=== PATIENT | male | born 2000 | race Caucasian/White ===

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

== ENCOUNTER 2022-08-09 14:10 | Emergency (ER) | payer OTHER | END 2022-08-09 14:38 | disposition left against medical advice (07) | LOC: ED 14:10 → MERGE 14:10 → ED 14:38 | DX: Z53.21 Procedure and treatment not carried out due to patient leaving prior to being seen by health care provider (principal) | CPT/HCPCS: 99281 ==

== ENCOUNTER 2025-02-26 13:40 | Emergency (ER) | payer MEDICAID ==
[2025-02-26 14:08] VITALS: BP 132/88; PULSE 97; TEMP 97; O2SAT 100
--- NOTE | 2025-02-26 14:37 | ERPHSYRPT ---
- History of Present Illness Source: patient Exam Limitations: no limitations Patient Subjective Stated Complaint: pt c/o of left lower mouth pain Triage Nursing Assessment: Pt brought to the ER by his , vital wnl, rates pain as 10/10, pulses normal, skin n/w/d, left lower jaw swollen, pain radiates up to his eye and head, pt reports that all his teeth are broken, does not have a dentist here, denies any other issues Physician History: Patient had a toothache for 3 days. He has had some swelling in his left lower jaw. He has not had any trismus or Ludewig's angina. He has had no fever or chills. He is not having any airway compromise. He does not have a dentist. Nothing makes symptoms better or worse. Allergies/Adverse Reactions: No Known Drug Allergies Allergy (Verified 02/26/25 14:09) Hx Tetanus, Diphtheria Vaccination/Date Given: Yes Hx Influenza Vaccination/Date Given: Yes Hx Pneumococcal Vaccination/Date Given: No Travel Risk - International Travel Have you traveled outside of the country in past 3 weeks: No - Emerging Infectious Disease Are you exhibiting symptoms associated with any current EIDs: No - Review of Systems Constitutional: No Symptoms Eyes: No Symptoms Respiratory: No Symptoms Cardiac: No Symptoms - Past Medical History Pertinent Past Medical History: Yes Neurological History: No Pertinent History ENT History: No Pertinent History Cardiac History: No Pertinent History Respiratory History: No Pertinent History Endocrine Medical History: Diabetes Type I Musculoskeletal History: No Pertinent History GI Medical History: No Pertinent History History: No Pertinent History Psycho-Social History: Bipolar, Depression, Attention Deficit Disorder Male Reproductive Disorders: No Pertinent History - Past Surgical History Past Surgical History: No Neuro Surgical History: No Pertinent History Cardiac: No Pertinent History Respiratory: No Pertinent History Gastrointestinal: No Pertinent History Genitourinary: No Pertinent History Musculoskeletal: No Pertinent History Male Surgical History: No Pertinent History - Social History Smoking Status: Current every day smoker How long have you smoked: 7 years Exposure to second hand smoke: Yes Drug Use: marijuana - Social Determinants of Health Will the patient participate in the screening: Yes Do you worry about a steady place to live?: No Do you have any problems with any of the following?: No known problems In the past 12 months,have you had to go without utilities?: No Transportation Issues: No Has anyone in your support network made you feel unsafe?: No Have you or anyone in your house had to go w/o enough food: No - Nursing Vital Signs Nursing Vital Signs: Initial Vital Signs Temperature 97.0 F 02/26/25 14:03 Pulse Rate 97 H 02/26/25 14:03 Blood Pressure 132/88 02/26/25 14:03 O2 Sat by Pulse Oximetry 100 02/26/25 14:03 Pain Scale Pain Intensity 10 - Physical Exam General Appearance: no apparent distress Eye Exam: PERRL/EOMI Ears, Nose, Throat Exam: pharynx normal, other (Patient has some swelling is outside of his tooth line. It is not inside. There is no elevation of the floor the mouth. His pharynx is patent. Neck is within normal limits.), No pharyngeal erythema, No tonsillar exudate Neck Exam: normal inspection Respiratory Exam: normal breath sounds SpO2: 100 - Progress Progress: unchanged Progress Note: I would give the patient some clindamycin. Also some Delight. He is to follow-up with his dentist. He will return if symptoms worsen.He is not having any signs or symptoms that are worrisome. 02/26/25 14:33 - Departure Departure Disposition: Home Clinical Impression: Dental abscess Condition: Stable Critical Care Time: No Referrals: DOCTOR,NO FAMILY [Primary Care Provider, UNKNOWN] - Follow up/PCP as directed Instructions: Tooth Abscess (DC)
[2025-02-26] MEDS: NORCO 5/325 MG PO ONE (14:55)
[2025-02-26] MEDS ORDERED: NORCO 5/325 MG ONE (14:55)
== END 2025-02-26 15:14 | disposition home or self-care (01) ==
LOC: ED 13:40
DX: K04.7 Periapical abscess without sinus (principal); K08.89 Other specified disorders of teeth and supporting structures; E10.9 Type 1 diabetes mellitus without complications; Z72.0 Tobacco use; Z79.891 Long term (current) use of opiate analgesic; Z79.899 Other long term (current) drug therapy

== ENCOUNTER 2025-07-21 02:53 | Observation (INO) | payer MEDICAID ==
--- NOTE | 2025-07-21 03:29 | ERPHSYRPT ---
- History of Present Illness Time Seen by Provider: 07/21/25 03:28 Historian: patient Exam Limitations: no limitations Patient Subjective Stated Complaint: pt states that he has been vomiting the past few hours Triage Nursing Assessment: pt came into the er via wheelchair; pt transfer to cot per self; pt is axo x4; c/o vomiting; pt states 10/10 pain to abdomen; abd is soft, flat, tender; active bowel sounds in all quads; c/o N/V; blood sugar on arrival was 564; skin patterson, warm, dry; no respiratory distress present; tachycardic Physician History: Patient presents with concern for diabetic ketoacidosis (DKA). He states symptoms began approximately 2 hours prior to arrival. The patient has a known history of DKA. He reports he has been unable to obtain his long-acting insulin and has not been managing his blood glucose. He endorses generalized pain. [id number] blood glucose on arrival was in the 560s. The provider suspects DKA and will initiate a workup. Allergies/Adverse Reactions: No Known Drug Allergies Allergy (Verified 07/21/25 02:58) Home Medications: Insulin Glargine,Hum.rec.anlog [Basaglar Kwikpen U-100] 40 unit SQ DAILY 07/21/25 [History] Hx Tetanus, Diphtheria Vaccination/Date Given: Yes Hx Influenza Vaccination/Date Given: No Hx Pneumococcal Vaccination/Date Given: No Travel Risk - International Travel Have you traveled outside of the country in past 3 weeks: No - Emerging Infectious Disease Are you exhibiting symptoms associated with any current EIDs: Yes Symptoms: Abdominal Pain, Vomitting - Review of Systems All Other Systems: Reviewed and Negative - Past Medical History Pertinent Past Medical History: Yes Neurological History: No Pertinent History ENT History: No Pertinent History Cardiac History: No Pertinent History Respiratory History: No Pertinent History Endocrine Medical History: Diabetes Type I Musculoskeletal History: No Pertinent History GI Medical History: No Pertinent History History: No Pertinent History Psycho-Social History: Bipolar, Depression, Attention Deficit Disorder Male Reproductive Disorders: No Pertinent History - Past Surgical History Past Surgical History: No Neuro Surgical History: No Pertinent History Cardiac: No Pertinent History Respiratory: No Pertinent History Gastrointestinal: No Pertinent History Genitourinary: No Pertinent History Musculoskeletal: No Pertinent History Male Surgical History: No Pertinent History - Social History Smoking Status: Current every day smoker How long have you smoked: 7 years Exposure to second hand smoke: Yes Drug Use: marijuana - Social Determinants of Health Will the patient participate in the screening: Yes Do you worry about a steady place to live?: No Do you have any problems with any of the following?: No known problems In the past 12 months,have you had to go without utilities?: No Transportation Issues: No Has anyone in your support network made you feel unsafe?: No Have you or anyone in your house had to go w/o enough food: No - Nursing Vital Signs Nursing Vital Signs: Initial Vital Signs Pulse Rate 103 H 07/21/25 03:01 Respiratory Rate 23 07/21/25 03:01 Blood Pressure 135/106 07/21/25 03:01 O2 Sat by Pulse Oximetry 90 L 07/21/25 03:01 Pain Scale Pain Intensity 0 - Physical Exam General Appearance: moderate distress, thin Neck Exam: normal inspection, non-tender, supple, full range of motion Respiratory Exam: normal breath sounds, lungs clear, airway intact, No respiratory distress Cardiovascular Exam: normal heart sounds, tachycardia, capillary refill <2 sec, edema Gastrointestinal/Abdomen Exam: soft, tenderness (diffuse), guarding, No rebound Neurologic Exam: alert, oriented x 3, other (restless) Skin Exam: normal color, warm, dry, No rash SpO2 Interpretation: normal SpO2: 100 O2 Delivery: Room Air - Course Nursing assessment & vital signs reviewed: Yes Ordered Tests: Active Orders 24 hr Category Date Time Status IV Insertion STAT Care 07/21/25 03:31 Active IV Insertion STAT Care 07/21/25 03:33 Active ABDOMEN AND PELVIS W/0 CONTRAS [CT] Stat Exams 07/21/25 03:32 Completed CBC W DIFF Stat Lab 07/21/25 03:55 Completed CMP Stat Lab 07/21/25 03:55 Completed ETHYL ALCOHOL Stat Lab 07/21/25 03:55 Completed LIPASE Stat Lab 07/21/25 03:55 Completed Lactic Acid Stat Lab 07/21/25 03:31 Completed Lactic Acid Stat Lab 07/21/25 05:20 Ordered MAGNESIUM Stat Lab 07/21/25 03:55 Completed Manual Differential NC Stat Lab 07/21/25 03:55 Completed POCT GLUCOSE Stat Lab 07/21/25 03:04 Completed POCT GLUCOSE Stat Lab 07/21/25 04:45 Completed UA W/RFX UR CULTURE Stat Lab 07/21/25 03:46 Completed Urine Triage Profile Stat Lab 07/21/25 03:46 Completed VENOUS BLOOD GAS Urgent Lab 07/21/25 03:29 Completed Medication Summary Generic Name Dose Route Start Last Admin Trade Name Matthew PRN Reason Stop Dose Admin Potassium Chloride 20 meq in 100 mls @ 50 mls/hr 07/21/25 04:00 07/21/25 03:58 Potassium Chloride 20 Meq In Water 100ml IV 07/21/25 07:59 50 mls/hr Q2H SARAH Administration INSULIN REGULAR IN 0.9 % NACL 100 unit in 100 mls @ 7.31 mls/hr 07/21/25 03:58 07/21/25 04:00 Myxredlin 100 Unit/100 Ml Bag IV 08/20/25 03:57 0.1 unit/kg/hr .[id number] PRN 7.31 mls/hr HYPERGLYCEMIA Administration Protocol 0.1 UNIT/KG/HR Magnesium Sulfate/Dextrose 100 mls @ 100 mls/hr 07/21/25 05:00 07/21/25 05:01 Magnesium 1 Gm / 100 Ml D5w IV 07/21/25 06:59 100 mls/hr Q1H SARAH Administration Discontinued Medications Generic Name Dose Route Start Last Admin Trade Name Matthew PRN Reason Stop Dose Admin Droperidol 1.25 mg 07/21/25 03:31 07/21/25 03:42 Droperidol 5 Mg/2 Ml Vial IV 07/21/25 03:32 1.25 mg STAT ONE Administration Droperidol Confirm 07/21/25 03:36 Droperidol 5 Mg/2 Ml Vial Administered 07/21/25 03:37 Dose 5 mg .ROUTE .STK-MED ONE Sodium Chloride 1,000 mls @ 999 mls/hr 07/21/25 03:29 07/21/25 04:48 Sodium Chloride 0.9% 1000 Ml IV 07/21/25 04:29 Infused .Q1H1M STA Infusion Sodium Chloride Confirm 07/21/25 03:38 Sodium Chloride 0.9% 1000 Ml Administered 07/21/25 03:39 Dose 1,000 mls @ ud .ROUTE .STK-MED ONE INSULIN REGULAR IN 0.9 % NACL Confirm 07/21/25 03:57 Myxredlin 100 Unit/100 Ml Bag Administered 07/21/25 03:58 Dose 100 unit in 100 mls @ ud IV .STK-MED ONE Sodium Chloride Confirm 07/21/25 04:53 Sodium Chloride 0.9% 1000 Ml Administered 07/21/25 04:54 Dose 1,000 mls @ ud .ROUTE .STK-MED ONE Insulin Human Lispro 12 unit 07/21/25 03:29 07/21/25 03:41 Insulin Lispro 1 Unit SQ 07/21/25 03:30 12 unit STAT ONE Administration Insulin Human Lispro Confirm 07/21/25 03:38 Insulin Lispro 1 Unit Administered 07/21/25 03:39 Dose 12 unit .ROUTE .STK-MED ONE Lab/Rad Data: Laboratory Result Diagrams 07/21/25 03:55 07/21/25 03:55 Laboratory Results 07/21/25 07/21/25 07/21/25 Range/Units 04:45 03:55 03:55 WBC 21.4 H (4.23-9.07) x10^3/uL RBC 6.12 H (4.63-6.08) x10^6/uL Hgb 16.2 (13.7-17.5) g/dL Hct 50.7 (40.1-51.0) % MCV 82.8 (79.0-92.2) fL MCH 26.5 (25.7-32.2) pg MCHC 32.0 L (32.3-36.5) g/dL RDW 13.9 (11.6-14.4) % Plt Count 520 H (163-337) x10^3/uL MPV 10.1 (9.4-12.4) fL pO2/FiO2 Ratio % VBG pH (7.32-7.42) VBG pCO2 at Pat Temp (42-55) mm/Hg VBG pO2 at Pat Temp (25-40) mm/Hg VBG HCO3 (22-28) meq/L VBG O2 Sat (Deondre) (95-100) VBG Base Excess (-2.0-2.0) VBG Hemoglobin VBG Carboxyhemoglobin (0.0-6.9) % T HGB POC Potassium (3.5-5.1) Sodium 131 L (135-145) mmol/L Potassium 4.1 (3.5-5.1) mmol/L Chloride 94 L (98-107) mmol/L Carbon Dioxide 6 L* (22-30) mmol/L Anion Gap 36.1 H (5-15) MEQ/L BUN 16 (9-20) mg/dL Creatinine 1.01 (0.66-1.25) mg/dL Estimated GFR 105.8 ML/MIN Glucose 624 H* (74-106) mg/dL POC Glucometer 420 H (50 to 500) mg/dL Lactic Acid (0.4-2.0) Calcium 9.5 (8.4-10.2) mg/dL Magnesium (1.6-2.3) mg/dL Total Bilirubin 0.90 (0.2-1.3) mg/dL AST 38 (17-59) U/L ALT 41 (0-50) U/L Alkaline Phosphatase 188 H (38-126) U/L Serum Total Protein 9.2 H (6.3-8.2) g/dL Albumin 5.0 (3.5-5.0) g/dL Lipase 26 (23-300) U/L Urine Color (Yellow) Urine Appearance (Clear) Urine pH (4.6-8.0) Ur Specific [place] (1.005-1.030) Urine Protein (Negative) Urine Glucose (UA) (Negative) mg/dL Urine Ketones (Negative) Urine Blood (Negative) Urine Nitrite (Negative) Urine Bilirubin (Negative) Urine Urobilinogen (0.2) mg/dL Ur Leukocyte Esterase (Negative) U Hyaline Cast (Auto) (0-2) /LPF Urine Microscopic RBC (0-5) /HPF Urine Microscopic WBC (0-5) /HPF Ur Epithelial Cells (None Seen) /HPF Urine Bacteria (None Seen) /HPF Urine Culture Reflexed (NO) Urine Opiates Level (NEGATIVE) Ur Methadone (NEGATIVE) Urine Barbiturates (NEGATIVE) Ur Phencyclidine (PCP) (NEGATIVE) Urine Amphetamine (NEGATIVE) U Benzodiazepine Level (NEGATIVE) Urine Cocaine (NEGATIVE) Urine Marijuana (THC) (NEGATIVE) Ethyl Alcohol (0-10) mg/dL 07/21/25 07/21/25 07/21/25 Range/Units 03:55 03:46 03:46 WBC (4.23-9.07) x10^3/uL RBC (4.63-6.08) x10^6/uL Hgb (13.7-17.5) g/dL Hct (40.1-51.0) % MCV (79.0-92.2) fL MCH (25.7-32.2) pg MCHC (32.3-36.5) g/dL RDW (11.6-14.4) % Plt Count (163-337) x10^3/uL MPV (9.4-12.4) fL pO2/FiO2 Ratio % VBG pH (7.32-7.42) VBG pCO2 at Pat Temp (42-55) mm/Hg VBG pO2 at Pat Temp (25-40) mm/Hg VBG HCO3 (22-28) meq/L VBG O2 Sat (Deondre) (95-100) VBG Base Excess (-2.0-2.0) VBG Hemoglobin VBG Carboxyhemoglobin (0.0-6.9) % T HGB POC Potassium (3.5-5.1) Sodium (135-145) mmol/L Potassium (3.5-5.1) mmol/L Chloride (98-107) mmol/L Carbon Dioxide (22-30) mmol/L Anion Gap (5-15) MEQ/L BUN (9-20) mg/dL Creatinine (0.66-1.25) mg/dL Estimated GFR ML/MIN Glucose (74-106) mg/dL POC Glucometer (50 to 500) mg/dL Lactic Acid (0.4-2.0) Calcium (8.4-10.2) mg/dL Magnesium 1.6 (1.6-2.3) mg/dL Total Bilirubin (0.2-1.3) mg/dL AST (17-59) U/L ALT (0-50) U/L Alkaline Phosphatase (38-126) U/L Serum Total Protein (6.3-8.2) g/dL Albumin (3.5-5.0) g/dL Lipase (23-300) U/L Urine Color Yellow (Yellow) Urine Appearance Clear (Clear) Urine pH 5.0 (4.6-8.0) Ur Specific [place] >=1.030 A (1.005-1.030) Urine Protein Negative (Negative) Urine Glucose (UA) >=1000 A (Negative) mg/dL Urine Ketones >=160 A (Negative) Urine Blood Negative (Negative) Urine Nitrite Negative (Negative) Urine Bilirubin Negative (Negative) Urine Urobilinogen 0.2 (0.2) mg/dL Ur Leukocyte Esterase Negative (Negative) U Hyaline Cast (Auto) NONE SEEN (0-2) /LPF Urine Microscopic RBC 0-2 (0-5) /HPF Urine Microscopic WBC 0-2 (0-5) /HPF Ur Epithelial Cells None Seen (None Seen) /HPF Urine Bacteria None Seen (None Seen) /HPF Urine Culture Reflexed NO (NO) Urine Opiates Level NEGATIVE (NEGATIVE) Ur Methadone NEGATIVE (NEGATIVE) Urine Barbiturates NEGATIVE (NEGATIVE) Ur Phencyclidine (PCP) NEGATIVE (NEGATIVE) Urine Amphetamine POSITIVE A (NEGATIVE) U Benzodiazepine Level NEGATIVE (NEGATIVE) Urine Cocaine NEGATIVE (NEGATIVE) Urine Marijuana (THC) POSITIVE A (NEGATIVE) Ethyl Alcohol < 10 (0-10) mg/dL 07/21/25 07/21/25 07/21/25 Range/Units 03:31 03:29 03:04 WBC (4.23-9.07) x10^3/uL RBC (4.63-6.08) x10^6/uL Hgb (13.7-17.5) g/dL Hct (40.1-51.0) % MCV (79.0-92.2) fL MCH (25.7-32.2) pg MCHC (32.3-36.5) g/dL RDW (11.6-14.4) % Plt Count (163-337) x10^3/uL MPV (9.4-12.4) fL pO2/FiO2 Ratio 21.0 % VBG pH 7.11 L* (7.32-7.42) VBG pCO2 at Pat Temp 39 L (42-55) mm/Hg VBG pO2 at Pat Temp 30 (25-40) mm/Hg VBG HCO3 12.4 L* (22-28) meq/L VBG O2 Sat (Deondre) 50.1 L (95-100) VBG Base Excess -16.5 L (-2.0-2.0) VBG Hemoglobin 17.0 VBG Carboxyhemoglobin 3.7 (0.0-6.9) % T HGB POC Potassium 4.9 (3.5-5.1) Sodium (135-145) mmol/L Potassium (3.5-5.1) mmol/L Chloride (98-107) mmol/L Carbon Dioxide (22-30) mmol/L Anion Gap (5-15) MEQ/L BUN (9-20) mg/dL Creatinine (0.66-1.25) mg/dL Estimated GFR ML/MIN Glucose (74-106) mg/dL POC Glucometer 564 H* (50 to 500) mg/dL Lactic Acid 3.6 H (0.4-2.0) Calcium (8.4-10.2) mg/dL Magnesium (1.6-2.3) mg/dL Total Bilirubin (0.2-1.3) mg/dL AST (17-59) U/L ALT (0-50) U/L Alkaline Phosphatase (38-126) U/L Serum Total Protein (6.3-8.2) g/dL Albumin (3.5-5.0) g/dL Lipase (23-300) U/L Urine Color (Yellow) Urine Appearance (Clear) Urine pH (4.6-8.0) Ur Specific [place] (1.005-1.030) Urine Protein (Negative) Urine Glucose (UA) (Negative) mg/dL Urine Ketones (Negative) Urine Blood (Negative) Urine Nitrite (Negative) Urine Bilirubin (Negative) Urine Urobilinogen (0.2) mg/dL Ur Leukocyte Esterase (Negative) U Hyaline Cast (Auto) (0-2) /LPF Urine Microscopic RBC (0-5) /HPF Urine Microscopic WBC (0-5) /HPF Ur Epithelial Cells (None Seen) /HPF Urine Bacteria (None Seen) /HPF Urine Culture Reflexed (NO) Urine Opiates Level (NEGATIVE) Ur Methadone (NEGATIVE) Urine Barbiturates (NEGATIVE) Ur Phencyclidine (PCP) (NEGATIVE) Urine Amphetamine (NEGATIVE) U Benzodiazepine Level (NEGATIVE) Urine Cocaine (NEGATIVE) Urine Marijuana (THC) (NEGATIVE) Ethyl Alcohol (0-10) mg/dL - Progress Progress: improved Progress Note: 07/21/25 03:36 Differential Diagnosis: -Diabetic Ketoacidosis (DKA) (possible due to known history of DKA, non- compliance with insulin, and blood glucose in the 560s) -Hyperglycemic Hyperosmolar State (HHS) (possible due to severe hyperglycemia) -Hyperglycemia (possible due to high blood glucose reading, but likely progressed to DKA) -Sepsis (possible as an underlying trigger for DKA, presenting with generalized pain) -Pancreatitis (possible as it can be a cause or consequence of DKA and can present with generalized pain) Due to the chief complaint, the following diagnoses were also considered but the signs/symptoms, physical exam, and data points are not consistent with any of the following: Acute Myocardial Infarction, Pulmonary Embolism, Aortic Dissection, Stroke, Subarachnoid Hemorrhage, Appendicitis, Cholecystitis, Bowel Obstruction, Meningitis, Cauda Equina Syndrome, and Spinal Epidural Abscess. Rationale for Diagnosis and Decision Making: The patient presents with a history of DKA, known insulin non-compliance due to inability to obtain his medication, and a [id number] glucose in the 560s. The clinical suspicion for DKA is very high. A full workup including labs will be initiated to confirm the diagnosis and guide management with an insulin drip and fluid resuscitation. Given the high likelihood of DKA requiring inpatient management, the patient will be admitted. 07/21/25 03:54 Venous blood gas results showed pH of 7.11 and a bicarb of 12 with a potassium of 4.9. I will initiate a DKA protocol with insulin drip. I will give 40 mill equivalents of potassium as well to adjust for the insulin. 07/21/25 05:21 CT abd/pelvis neg. Discussed admission with Dr. Jennifer Briscoe who accepts at 0520, requests repeat lactic which we will obtain prior to proceeding to the floor. Discussed with Dr.: Vadim Will see patient in: hospital (observation) Counseled pt/family regarding: lab results, diagnosis, need for follow-up, rad results Medical Desision Making - Discussion of managment Care discussed with:: hospitalist Reviewed:: Test results, Need for additional workup Agreed on:: Treatment plan, place in obs Will see patient: in hospital - Social Determinants of Health Pt's dx & treatment plan are significantly limited by SDOH: homelessness Limited access to: transportation - Diagnostic Testing Diagnostic test were ordered, analyzed, and reviewed by me: Yes Radiological Interpretation: Interpreted by me, Reviewed by me, Teleradiologist Report - Risk of complications The pt has a mod risk of morbidity or mortality based on: Need for prescription drug management The pt has a high risk of morbidity or mortality based on: Decision regarding hospitilization or escalation of hosp level of care - Departure Departure Disposition: Observation Clinical Impression: DKA, type 1, not at goal, Vomiting, Abdominal pain Condition: Stable Critical Care Time: No Referrals: DOCTOR,NO FAMILY [Primary Care Provider, UNKNOWN] - Follow up/PCP as directed Instructions: Diabetic ketoacidosis
[2025-07-21] MEDS ORDERED: Inapsine 5 MG/2 ML ONE (03:36)
[2025-07-21] MEDS ORDERED: HUMALOG ONE (03:38)
[2025-07-21] MEDS: HUMALOG SQ ONE (03:41)
[2025-07-21] MEDS: Inapsine 5 MG/2 ML IV ONE (03:42)
[2025-07-21 03:46] LABS: VBG BASE EXCESS -16.5 (-2.0-2.0); VBG CARBOXYHEMOGLOBIN 3.7 % T HGB (0.0-6.9); VBG FIO2 21.0 %; VBG HCO3- 12.4 meq/L (22-28); VBG HEMOGLOBIN 17.0; VBG O2 SATURATION 50.1 (95-100); VBG PCO2 39.0 mm/Hg (42-55); VBG PO2 30.0 mm/Hg (25-40); VBG POTASSIUM 4.9 (3.5-5.1)
[2025-07-21] MEDS ORDERED: MYXREDLIN 100 UNIT/100 ML BAG 100 UNIT/100 ML PLAST..BAG IV ONE (03:57)
[2025-07-21] MEDS: POTASSIUM CHLORIDE 20 mEq IN WATER 100ML 20 MEQ/100 ML BAG IV SCH (03:58)
[2025-07-21] MEDS: MYXREDLIN 100 UNIT/100 ML BAG 100 UNIT/100 ML PLAST..BAG IV PRN (04:00)
[2025-07-21 04:04] LABS: Hematocrit 50.7 % (40.1-51.0); Hemoglobin 16.2 g/dL (13.7-17.5); Mean Corpuscular Hemoglobin 26.5 pg (25.7-32.2); Mean Corpuscular Hgb Concent. 32.0 g/dL (32.3-36.5); Platelet Count 520 x10^3/uL (163-337); Red Blood Count 6.12 x10^6/uL (4.63-6.08); White Blood Count 21.4 x10^3/uL (4.23-9.07)
[2025-07-21 04:15] LABS: Calcium 9.5 mg/dL (8.4-10.2); Creatinine 1 1.01 mg/dL (0.66-1.25); EST GLOMERULAR FILTRATION RATE 105.8 ML/MIN; ETHYL ALCOHOL < 10 mg/dL (0-10); Potassium 4.1 mmol/L (3.5-5.1); SGOT/AST 38.0 U/L (17-59); SGPT/ALT 41.0 U/L (0-50); Total Protein 9.2 g/dL (6.3-8.2)
[2025-07-21 04:17] LABS: Glucose, Urine >=1000 mg/dL (Negative); Protein,Urine Dip Negative (Negative); RBC 0-2 /HPF (0-5); WBC 0-2 /HPF (0-5)
--- NOTE | 2025-07-21 04:18 | XRAY ---
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 TECHNIQUE: Contiguous axial images were obtained from the level of the diaphragm to the pubic symphysis without intravenous or oral contrast. Coronal and sagittal reconstructions were likewise performed and indicated to increase the sensitivity for detecting clinically relevant pathology. CT scan was performed according to ALARA (as low as reasonable achievable). FINDINGS: The visualized lung bases are clear. Evaluation of the abdominal and pelvic visceral organs is limited without intravenous contrast. The unenhanced liver, spleen, pancreas, and adrenal glands are grossly unremarkable. The gallbladder is present. The kidneys are normal in size and attenuation without obvious calcification. There is no hydronephrosis or perinephric stranding. The ureters are normal in caliber. The urinary bladder is normal in contour. No evidence of focal or diffuse bowel wall thickening or evidence of bowel obstruction is seen. The appendix is visualized in the right lower quadrant and appears within normal limits. No adenopathy or fluid collections are seen. The aorta is normal in caliber. No aggressive appearing osseous lesions are identified. IMPRESSION: 1. No significant acute abnormality detected in this evaluation. Electronically Signed by: Tyrone Armenta MD. (07/21/2025 04:16:30 EST)
[2025-07-21 04:25] LABS: Glucose 624.0 mg/dL (74-106)
[2025-07-21 04:26] LABS: Carbon Dioxide 6.0 mmol/L (22-30)
[2025-07-21 04:27] LABS: Amphetamine,Urine POSITIVE (NEGATIVE); Barbiturate,Urine NEGATIVE (NEGATIVE); Benzodiazepine,Urine NEGATIVE (NEGATIVE); Cocaine,Urine NEGATIVE (NEGATIVE); Methadone,Urine NEGATIVE (NEGATIVE); Opiate,Urine NEGATIVE (NEGATIVE); PCP,Urine NEGATIVE (NEGATIVE); THC,Urine POSITIVE (NEGATIVE)
[2025-07-21] MEDS: Magnesium 1 Gm / 100 Ml D5W*** 100 ML IV SCH (05:01)
[2025-07-21 05:48] LABS: BAND 2 % (0.0-2.0); Total Cells Counted 100
[2025-07-21] MEDS ORDERED: D5W/0.45NS W/ 20mEq KCl 1000 ML 1,000 ML IV ONE (06:57)
[2025-07-21] MEDS ORDERED: DEXTROSE 5% -NACL 0.9% 1000 ML + KCl 20 MEQ 1,000 ML IV SCH (07:00)
[2025-07-21] MEDS: D5W/0.45NS W/ 20mEq KCl 1000 ML 1,000 ML IV SCH (07:00)
--- NOTE | 2025-07-21 07:53 | PCM.HP ---
History of Present Illness - Chief Complaint Chief Complaint: dka Date: 07/21/25 History of Present Illness: is a 25 year old male with known type 1 diabetes, bipolar disorder, and ADHD presented to the ED on 07/21/2025 after several hours of persistent vomiting and self-reported concern for DKA, stating he has been non-compliant with insulin and has not had long-acting insulin; he also reports he does not have a glucometer to check sugars. Social history is high-risk: he is homeless and living in his car, which significantly limits medication storage, access, and reliable follow-up. Patient was sleeping on initial evaluation, arousable to verbal stimulation, but minimally cooperative with interview and requested to be left alone to sleep. Upon arrival to EDhe was tachycardic with otherwise stable vitals. Initial labs were diagnostic of severe highanion gap metabolic acidosis: VBG pH 7.11 with HCO2 12.4 (serum CO2 6) and anion gap 36.1, consistent with DKA in the clinical setting of vomiting and insulin omission; urinalysis supported this with glucose >1000 and ketones >160. Electrolytes showed Na 131, Cl 94, and BUN 16 (no overt azotemia reported), with hemoconcentration suggested by VBG hemoglobin 17.0. He had leukocytosis (WBC 21.4) and an initial lactate 3.6 that improved to 1.6 after IV fluids, favoring hypovolemia/stress physiology rather than persistent tissue hypoperfusion, though infection still requires exclusion. Alkaline phosphatase was 188 (isolated valueinterpret in context with other LFTs if available). UDS was positive for amphetamines and marijuana, which may contribute to poor intake, dehydration, and nonadherence. CT abdomen/pelvis showed no acute findings, lowering suspicion for an intra-abdominal surgical process as the vomiting trigger. In the ED he received 12 units Humalog, was started on an insulin infusion, and treated with IV fluids (1 L NS), magnesium, and potassium repletion (40 mEq). He is admitted for continued protocolized DKA management with close electrolyte monitoring and to address major barriers to safe discharge (housing insecurity, lack of insulin supplies, and no glucose monitoring). - Review of Systems Constitutional: No Symptoms Eyes: No Symptoms Ears, Nose, & Throat: No Symptoms Respiratory: No Symptoms Cardiac: No Symptoms Abdominal/Gastrointestinal: Abdominal Pain, Nausea, Vomiting Genitourinary Symptoms: No Symptoms Musculoskeletal: No Symptoms Skin: No Symptoms Neurological: No Symptoms Psychological: No Symptoms Endocrine: No Symptoms Hematologic/Lymphatic: No Symptoms Immunological/Allergic: No Symptoms Medications & Allergies Home Medications: Home Medication List Insulin Glargine,Hum.rec.anlog [Basaglar Kwikpen U-100] 40 unit SQ DAILY 07/21/25 [History Confirmed 07/21/25] Insulin Lispro [Insulin Lispro Kwikpen U-100] See Rx Instructions .ROUTE .C OMPLEX 07/21/25 [History Confirmed 07/21/25] Allergies/Adverse Reactions: Allergies Allergy/AdvReac Type Severity Reaction Status Date / Time No Known Drug Allergies Allergy Verified 07/21/25 02:58 - Past Medical History Past Medical History: Yes Neurological History: Peripheral Neuropathy, Seizures ENT History: No Pertinent History Cardiac History: No Pertinent History Respiratory History: No Pertinent History Endocrine Medical History: Diabetes Type I Musculoskelatal History: Other GI Medical History: No Pertinent History History: No Pertinent History Pyscho-Social History: Attention Deficit Disorder, Bipolar, Depression, Other Male Reproductive Disorders: No Pertinent History Comment: explosive disorder, general degenerative disease, alpha-thalassemia - Past Surgical History Past Surgical History: No Neuro Surgical History: No Pertinent History Cardiac History: No Pertinent History Respiratory Surgery: No Pertinent History GI Surgical History: No Pertinent History Genitourinary Surgical Hx: No Pertinent History Musculskeletal Surgical Hx: No Pertinent History Male Surgical History: No Pertinent History - Social History Smoking Status: Current every day smoker How long have you smoked: 7 years Exposure to second hand smoke: Yes Alcohol: None Drug Use: marijuana, methamphetamines - Social Determinants of Health Will the patient participate in the screening: Yes Do you worry about a steady place to live?: No Do you have any problems with any of the following?: No known problems In the past 12 months,have you had to go without utilities?: No Have you or anyone in your house had to go without enough: No Transportation Issues: No Has anyone in your support network made you feel unsafe?: No - Physical Exam Vital Signs: Vital Signs - 24 hr Temp Pulse Resp BP BP Pulse Ox 07/21/25 05:50 101 H 16 105/67 99 07/21/25 05:49 97 H 16 07/21/25 05:23 100 07/21/25 05:00 106 H 17 117/82 100 07/21/25 04:30 107 H 17 91/69 100 07/21/25 04:00 105 H 19 134/83 100 07/21/25 03:30 107 H 25 H 134/97 100 07/21/25 03:02 96.7 F 112 H 20 135/106 100 07/21/25 03:01 103 H 23 135/106 90 L General Appearance: no apparent distress Neurologic Exam: alert, oriented x 3, uncooperative Eye Exam: PERRL/EOMI Ears, Nose, Throat Exam: normal ENT inspection Neck Exam: normal inspection Respiratory Exam: normal breath sounds, lungs clear Cardiovascular Exam: regular rate/rhythm, normal heart sounds Gastrointestinal/Abdomen Exam: soft, normal bowel sounds Rectal Exam: deferred Back Exam: normal inspection Extremity Exam: normal inspection Skin Exam: normal color Results - Labs Lab/Micro Results: Lab Results-Last 24 Hours 07/21/25 07/21/25 07/21/25 Range/Units 03:04 03:29 03:31 WBC (4.23-9.07) x10^3/uL RBC (4.63-6.08) x10^6/uL Hgb (13.7-17.5) g/dL Hct (40.1-51.0) % MCV (79.0-92.2) fL MCH (25.7-32.2) pg MCHC (32.3-36.5) g/dL RDW (11.6-14.4) % Plt Count (163-337) x10^3/uL MPV (9.4-12.4) fL Segmented Neutrophils (34.0-67.9) % Band Neutrophils (0.0-2.0) % Lymphocytes (Manual) (21.8-53.1) % Monocytes (Manual) (5.3-12.2) % Basophils (Manual) (0.2-1.2) % Platelet Estimate (NORMAL) RBC Morphology pO2/FiO2 Ratio 21.0 % VBG pH 7.11 L* (7.32-7.42) VBG pCO2 at Pat Temp 39 L (42-55) mm/Hg VBG pO2 at Pat Temp 30 (25-40) mm/Hg VBG HCO3 12.4 L* (22-28) meq/L VBG O2 Sat (Deondre) 50.1 L (95-100) VBG Base Excess -16.5 L (-2.0-2.0) VBG Hemoglobin 17.0 VBG Carboxyhemoglobin 3.7 (0.0-6.9) % T HGB POC Potassium 4.9 (3.5-5.1) Sodium (135-145) mmol/L Potassium (3.5-5.1) mmol/L Chloride (98-107) mmol/L Carbon Dioxide (22-30) mmol/L Anion Gap (5-15) MEQ/L BUN (9-20) mg/dL Creatinine (0.66-1.25) mg/dL Estimated GFR ML/MIN Glucose (74-106) mg/dL POC Glucometer 564 H* (50 to 500) mg/dL Lactic Acid 3.6 H (0.4-2.0) Calcium (8.4-10.2) mg/dL Magnesium (1.6-2.3) mg/dL Total Bilirubin (0.2-1.3) mg/dL AST (17-59) U/L ALT (0-50) U/L Alkaline Phosphatase (38-126) U/L Serum Total Protein (6.3-8.2) g/dL Albumin (3.5-5.0) g/dL Lipase (23-300) U/L Urine Color (Yellow) Urine Appearance (Clear) Urine pH (4.6-8.0) Ur Specific [place] (1.005-1.030) Urine Protein (Negative) Urine Glucose (UA) (Negative) mg/dL Urine Ketones (Negative) Urine Blood (Negative) Urine Nitrite (Negative) Urine Bilirubin (Negative) Urine Urobilinogen (0.2) mg/dL Ur Leukocyte Esterase (Negative) U Hyaline Cast (Auto) (0-2) /LPF Urine Microscopic RBC (0-5) /HPF Urine Microscopic WBC (0-5) /HPF Ur Epithelial Cells (None Seen) /HPF Urine Bacteria (None Seen) /HPF Urine Culture Reflexed (NO) Urine Opiates Level (NEGATIVE) Ur Methadone (NEGATIVE) Urine Barbiturates (NEGATIVE) Ur Phencyclidine (PCP) (NEGATIVE) Urine Amphetamine (NEGATIVE) U Benzodiazepine Level (NEGATIVE) Urine Cocaine (NEGATIVE) Urine Marijuana (THC) (NEGATIVE) Ethyl Alcohol (0-10) mg/dL 07/21/25 07/21/25 07/21/25 Range/Units 03:46 03:46 03:55 WBC (4.23-9.07) x10^3/uL RBC (4.63-6.08) x10^6/uL Hgb (13.7-17.5) g/dL Hct (40.1-51.0) % MCV (79.0-92.2) fL MCH (25.7-32.2) pg MCHC (32.3-36.5) g/dL RDW (11.6-14.4) % Plt Count (163-337) x10^3/uL MPV (9.4-12.4) fL Segmented Neutrophils (34.0-67.9) % Band Neutrophils (0.0-2.0) % Lymphocytes (Manual) (21.8-53.1) % Monocytes (Manual) (5.3-12.2) % Basophils (Manual) (0.2-1.2) % Platelet Estimate (NORMAL) RBC Morphology pO2/FiO2 Ratio % VBG pH (7.32-7.42) VBG pCO2 at Pat Temp (42-55) mm/Hg VBG pO2 at Pat Temp (25-40) mm/Hg VBG HCO3 (22-28) meq/L VBG O2 Sat (Deondre) (95-100) VBG Base Excess (-2.0-2.0) VBG Hemoglobin VBG Carboxyhemoglobin (0.0-6.9) % T HGB POC Potassium (3.5-5.1) Sodium (135-145) mmol/L Potassium (3.5-5.1) mmol/L Chloride (98-107) mmol/L Carbon Dioxide (22-30) mmol/L Anion Gap (5-15) MEQ/L BUN (9-20) mg/dL Creatinine (0.66-1.25) mg/dL Estimated GFR ML/MIN Glucose (74-106) mg/dL POC Glucometer (50 to 500) mg/dL Lactic Acid (0.4-2.0) Calcium (8.4-10.2) mg/dL Magnesium 1.6 (1.6-2.3) mg/dL Total Bilirubin (0.2-1.3) mg/dL AST (17-59) U/L ALT (0-50) U/L Alkaline Phosphatase (38-126) U/L Serum Total Protein (6.3-8.2) g/dL Albumin (3.5-5.0) g/dL Lipase (23-300) U/L Urine Color Yellow (Yellow) Urine Appearance Clear (Clear) Urine pH 5.0 (4.6-8.0) Ur Specific [place] >=1.030 A (1.005-1.030) Urine Protein Negative (Negative) Urine Glucose (UA) >=1000 A (Negative) mg/dL Urine Ketones >=160 A (Negative) Urine Blood Negative (Negative) Urine Nitrite Negative (Negative) Urine Bilirubin Negative (Negative) Urine Urobilinogen 0.2 (0.2) mg/dL Ur Leukocyte Esterase Negative (Negative) U Hyaline Cast (Auto) NONE SEEN (0-2) /LPF Urine Microscopic RBC 0-2 (0-5) /HPF Urine Microscopic WBC 0-2 (0-5) /HPF Ur Epithelial Cells None Seen (None Seen) /HPF Urine Bacteria None Seen (None Seen) /HPF Urine Culture Reflexed NO (NO) Urine Opiates Level NEGATIVE (NEGATIVE) Ur Methadone NEGATIVE (NEGATIVE) Urine Barbiturates NEGATIVE (NEGATIVE) Ur Phencyclidine (PCP) NEGATIVE (NEGATIVE) Urine Amphetamine POSITIVE A (NEGATIVE) U Benzodiazepine Level NEGATIVE (NEGATIVE) Urine Cocaine NEGATIVE (NEGATIVE) Urine Marijuana (THC) POSITIVE A (NEGATIVE) Ethyl Alcohol < 10 (0-10) mg/dL 07/21/25 07/21/25 07/21/25 Range/Units 03:55 03:55 04:45 WBC 21.4 H (4.23-9.07) x10^3/uL RBC 6.12 H (4.63-6.08) x10^6/uL Hgb 16.2 (13.7-17.5) g/dL Hct 50.7 (40.1-51.0) % MCV 82.8 (79.0-92.2) fL MCH 26.5 (25.7-32.2) pg MCHC 32.0 L (32.3-36.5) g/dL RDW 13.9 (11.6-14.4) % Plt Count 520 H (163-337) x10^3/uL MPV 10.1 (9.4-12.4) fL Segmented Neutrophils 78 H (34.0-67.9) % Band Neutrophils 2 (0.0-2.0) % Lymphocytes (Manual) 14 L (21.8-53.1) % Monocytes (Manual) 5 L (5.3-12.2) % Basophils (Manual) 1 (0.2-1.2) % Platelet Estimate INCREASED (NORMAL) RBC Morphology NORMAL pO2/FiO2 Ratio % VBG pH (7.32-7.42) VBG pCO2 at Pat Temp (42-55) mm/Hg VBG pO2 at Pat Temp (25-40) mm/Hg VBG HCO3 (22-28) meq/L VBG O2 Sat (Deondre) (95-100) VBG Base Excess (-2.0-2.0) VBG Hemoglobin VBG Carboxyhemoglobin (0.0-6.9) % T HGB POC Potassium (3.5-5.1) Sodium 131 L (135-145) mmol/L Potassium 4.1 (3.5-5.1) mmol/L Chloride 94 L (98-107) mmol/L Carbon Dioxide 6 L* (22-30) mmol/L Anion Gap 36.1 H (5-15) MEQ/L BUN 16 (9-20) mg/dL Creatinine 1.01 (0.66-1.25) mg/dL Estimated GFR 105.8 ML/MIN Glucose 624 H* (74-106) mg/dL POC Glucometer 420 H (50 to 500) mg/dL Lactic Acid (0.4-2.0) Calcium 9.5 (8.4-10.2) mg/dL Magnesium (1.6-2.3) mg/dL Total Bilirubin 0.90 (0.2-1.3) mg/dL AST 38 (17-59) U/L ALT 41 (0-50) U/L Alkaline Phosphatase 188 H (38-126) U/L Serum Total Protein 9.2 H (6.3-8.2) g/dL Albumin 5.0 (3.5-5.0) g/dL Lipase 26 (23-300) U/L Urine Color (Yellow) Urine Appearance (Clear) Urine pH (4.6-8.0) Ur Specific [place] (1.005-1.030) Urine Protein (Negative) Urine Glucose (UA) (Negative) mg/dL Urine Ketones (Negative) Urine Blood (Negative) Urine Nitrite (Negative) Urine Bilirubin (Negative) Urine Urobilinogen (0.2) mg/dL Ur Leukocyte Esterase (Negative) U Hyaline Cast (Auto) (0-2) /LPF Urine Microscopic RBC (0-5) /HPF Urine Microscopic WBC (0-5) /HPF Ur Epithelial Cells (None Seen) /HPF Urine Bacteria (None Seen) /HPF Urine Culture Reflexed (NO) Urine Opiates Level (NEGATIVE) Ur Methadone (NEGATIVE) Urine Barbiturates (NEGATIVE) Ur Phencyclidine (PCP) (NEGATIVE) Urine Amphetamine (NEGATIVE) U Benzodiazepine Level (NEGATIVE) Urine Cocaine (NEGATIVE) Urine Marijuana (THC) (NEGATIVE) Ethyl Alcohol (0-10) mg/dL 07/21/25 07/21/25 07/21/25 Range/Units 05:33 05:57 06:52 WBC (4.23-9.07) x10^3/uL RBC (4.63-6.08) x10^6/uL Hgb (13.7-17.5) g/dL Hct (40.1-51.0) % MCV (79.0-92.2) fL MCH (25.7-32.2) pg MCHC (32.3-36.5) g/dL RDW (11.6-14.4) % Plt Count (163-337) x10^3/uL MPV (9.4-12.4) fL Segmented Neutrophils (34.0-67.9) % Band Neutrophils (0.0-2.0) % Lymphocytes (Manual) (21.8-53.1) % Monocytes (Manual) (5.3-12.2) % Basophils (Manual) (0.2-1.2) % Platelet Estimate (NORMAL) RBC Morphology pO2/FiO2 Ratio % VBG pH (7.32-7.42) VBG pCO2 at Pat Temp (42-55) mm/Hg VBG pO2 at Pat Temp (25-40) mm/Hg VBG HCO3 (22-28) meq/L VBG O2 Sat (Deondre) (95-100) VBG Base Excess (-2.0-2.0) VBG Hemoglobin VBG Carboxyhemoglobin (0.0-6.9) % T HGB POC Potassium (3.5-5.1) Sodium (135-145) mmol/L Potassium (3.5-5.1) mmol/L Chloride (98-107) mmol/L Carbon Dioxide (22-30) mmol/L Anion Gap (5-15) MEQ/L BUN (9-20) mg/dL Creatinine (0.66-1.25) mg/dL Estimated GFR ML/MIN Glucose (74-106) mg/dL POC Glucometer 245 H 185 H (50 to 500) mg/dL Lactic Acid 1.6 (0.4-2.0) Calcium (8.4-10.2) mg/dL Magnesium (1.6-2.3) mg/dL Total Bilirubin (0.2-1.3) mg/dL AST (17-59) U/L ALT (0-50) U/L Alkaline Phosphatase (38-126) U/L Serum Total Protein (6.3-8.2) g/dL Albumin (3.5-5.0) g/dL Lipase (23-300) U/L Urine Color (Yellow) Urine Appearance (Clear) Urine pH (4.6-8.0) Ur Specific [place] (1.005-1.030) Urine Protein (Negative) Urine Glucose (UA) (Negative) mg/dL Urine Ketones (Negative) Urine Blood (Negative) Urine Nitrite (Negative) Urine Bilirubin (Negative) Urine Urobilinogen (0.2) mg/dL Ur Leukocyte Esterase (Negative) U Hyaline Cast (Auto) (0-2) /LPF Urine Microscopic RBC (0-5) /HPF Urine Microscopic WBC (0-5) /HPF Ur Epithelial Cells (None Seen) /HPF Urine Bacteria (None Seen) /HPF Urine Culture Reflexed (NO) Urine Opiates Level (NEGATIVE) Ur Methadone (NEGATIVE) Urine Barbiturates (NEGATIVE) Ur Phencyclidine (PCP) (NEGATIVE) Urine Amphetamine (NEGATIVE) U Benzodiazepine Level (NEGATIVE) Urine Cocaine (NEGATIVE) Urine Marijuana (THC) (NEGATIVE) Ethyl Alcohol (0-10) mg/dL - Radiology Impressions Radiology Exams & Impressions: Radiology Procedures Category Date Time Status ABDOMEN AND PELVIS W/0 CONTRAS [CT] Stat Exams 07/21/25 03:32 Completed Assessment/Plan (1) DKA, type 1, not at goal Current Visit: Yes Status: Acute Assessment & Plan: -Admit to ICU telemetry; NPO initially if actively vomiting. -Fluids: isotonic crystalloid now (NS or balanced). Reassess vitals/UOP frequently. When glucose 200, switch to D5-containing fluids -Continue insulin drip per protocol -BMP q4h -DKA protocal -Bicarb: generally no unless pH <6.9 (or protocol exception). -Resolution/transition: DKA resolved when AG closed (and bicarb/pH improving + tolerating PO). Give basal insulin 24 hrs before stopping drip, then basalboluscorrection regimen. -A1c -CM/ACO to help with insulin/supplies on discharge- patient currently living in his car Code(s): E10.10 - TYPE 1 DIABETES MELLITUS WITH KETOACIDOSIS WITHOUT COMA (2) Leukocytosis Current Visit: Yes Status: Acute Assessment & Plan: -Likely stress physiology (lactate improved 3.6-1.6 after fluids), -CT abdomen with no acute findings -Amphetamines on UDS Code(s): D72.829 - ELEVATED WHITE BLOOD CELL COUNT, UNSPECIFIED (3) Lactic acidosis Current Visit: Yes Status: Acute Code(s): E87.20 - ACIDOSIS, UNSPECIFIED (4) Vomiting Current Visit: Yes Status: Acute Assessment & Plan: -Antiemetics PRN; continue IVFs per above; advance diet when nausea improving and gap closing. Code(s): R11.10 - VOMITING, UNSPECIFIED (5) Homeless Current Visit: Yes Status: Acute Assessment & Plan: -Case management/social work: homelessness + no glucometer/long-acting insulin. -[id number]: basal + rapid insulin, needles/pens, glucometer/strips/lancets, ketone testing, glucagon; clear sick-day rules and f ollow-up arranged. Code(s): Z59.00 - HOMELESSNESS UNSPECIFIED (6) Bipolar 1 disorder Current Visit: Yes Status: Acute Assessment & Plan: -Not on home meds currently Code(s): F31.9 - BIPOLAR DISORDER, UNSPECIFIED (7) Substance abuse Current Visit: Yes Status: Acute Assessment & Plan: -UDS positive for amphetamines and marijuana. -Advised cessation; will provide resources -addiction/behavioral health VTE: Lovenox PPI: protonix Dispo: 1-3 days Code status: Full code I provided 45 minutes of critical care time, personally spent at the bedside and on the unit, excluding separately billable procedures. This time was required for the management of life-threatening diabetic ketoacidosis with severe metabolic acidosis, including high-complexity medical decision-making, initiation and titration of continuous IV insulin, aggressive IV fluid resuscitation, electrolyte management, frequent reassessment of hemodynamics and acidbase status, review and interpretation of labs and imaging, coordination with nursing, and prevention of imminent deterioration. Code(s): F19.10 - OTHER PSYCHOACTIVE SUBSTANCE ABUSE, UNCOMPLICATED
[2025-07-21 08:31] LABS: Calcium 8.5 mg/dL (8.4-10.2); Creatinine 1 0.79 mg/dL (0.66-1.25); EST GLOMERULAR FILTRATION RATE 126.4 ML/MIN; Glucose 173.0 mg/dL (74-106); Potassium 4.5 mmol/L (3.5-5.1)
[2025-07-21 08:42] LABS: Carbon Dioxide 11.0 mmol/L (22-30)
[2025-07-21] MEDS ORDERED: Zofran 4 MG/2 ML VIAL IV PRN (11:14)
[2025-07-21] MEDS ORDERED: TYLENOL 325 MG PO PRN (11:14)
[2025-07-21 13:11] LABS: Calcium 8.5 mg/dL (8.4-10.2); Creatinine 1 0.6 mg/dL (0.66-1.25); EST GLOMERULAR FILTRATION RATE 137.4 ML/MIN; Glucose 80.0 mg/dL (74-106); Potassium 3.7 mmol/L (3.5-5.1)
[2025-07-21 13:19] LABS: Carbon Dioxide 16.0 mmol/L (22-30)
[2025-07-21] MEDS: D50W 50 ml Abboject IV PRN (13:25)
[2025-07-21] MEDS ORDERED: HUMALOG SQ PRN (13:30)
[2025-07-21 16:14] LABS: Calcium 8.6 mg/dL (8.4-10.2); Carbon Dioxide 17.0 mmol/L (22-30); Creatinine 1 0.63 mg/dL (0.66-1.25); EST GLOMERULAR FILTRATION RATE 135.4 ML/MIN; Glucose 81.0 mg/dL (74-106); Potassium 3.7 mmol/L (3.5-5.1)
[2025-07-21] MEDS: TYLENOL EXTRA STRENGTH 500 MG PO PRN (18:10)
[2025-07-21 20:28] LABS: Calcium 8.4 mg/dL (8.4-10.2); Carbon Dioxide 18.0 mmol/L (22-30); Creatinine 1 0.62 mg/dL (0.66-1.25); EST GLOMERULAR FILTRATION RATE 136.0 ML/MIN; Glucose 93.0 mg/dL (74-106); Potassium 3.5 mmol/L (3.5-5.1)
[2025-07-22 00:29] VITALS: TEMP 97.4
[2025-07-22 00:33] LABS: Calcium 8.2 mg/dL (8.4-10.2); Carbon Dioxide 18.0 mmol/L (22-30); Creatinine 1 0.56 mg/dL (0.66-1.25); EST GLOMERULAR FILTRATION RATE 140.3 ML/MIN; Glucose 140.0 mg/dL (74-106); Potassium 3.1 mmol/L (3.5-5.1)
[2025-07-22 01:15] LABS: VBG BASE EXCESS -2.1 (-2.0-2.0); VBG CARBOXYHEMOGLOBIN 1.4 % T HGB (0.0-6.9); VBG FIO2 21.0 %; VBG HCO3- 20.9 meq/L (22-28); VBG HEMOGLOBIN 13.4; VBG O2 SATURATION 98.6 (95-100); VBG PCO2 30.0 mm/Hg (42-55); VBG PO2 122.0 mm/Hg (25-40)
[2025-07-22 01:16] LABS: VBG POTASSIUM 3.0 (3.5-5.1)
[2025-07-22] MEDS ORDERED: Lantus Insulin ONE (01:33)
[2025-07-22] MEDS: Lantus Insulin SQ SCH ×2 (01:35→09:52)
[2025-07-22] MEDS: POTASSIUM CHLORIDE 20 mEq IN WATER 100ML 20 MEQ/100 ML BAG IV SCH (01:35)
[2025-07-22 04:41] VITALS: O2SAT 99
[2025-07-22 05:36] LABS: BASOPHIL % 0.6 % (0.2-1.2); Basophil (Absolute #) 0.05 x10^3/uL (0.01-0.08); Eosinophil (Absolute #) 0.26 x10^3/uL (0.04-0.54); Hematocrit 39.0 % (40.1-51.0); Hemoglobin 12.8 g/dL (13.7-17.5); IMMATURE GRAN # 0.07 x10^3u/L (0.001-0.031); IMMATURE GRAN % 0.8 % (0.001-0.429); Lymphocyte (Absolute #) 2.64 x10^3/uL (1.32-3.57); Mean Corpuscular Hemoglobin 26.1 pg (25.7-32.2); Mean Corpuscular Hgb Concent. 32.8 g/dL (32.3-36.5); Monocyte (Absolute #) 0.65 x10^3/uL (0.30-0.82); NUCLEATED RBC # 0.00 x10^3u/L (0.00-0.012); NUCLEATED RBC % 0.0 % (0.00-0.2); Platelet Count 437 x10^3/uL (163-337); Red Blood Count 4.91 x10^6/uL (4.63-6.08); White Blood Count 8.5 x10^3/uL (4.23-9.07)
[2025-07-22 06:08] LABS: Calcium 8.5 mg/dL (8.4-10.2); Carbon Dioxide 18.0 mmol/L (22-30); Creatinine 1 0.54 mg/dL (0.66-1.25); EST GLOMERULAR FILTRATION RATE 141.8 ML/MIN; Glucose 95.0 mg/dL (74-106); Potassium 3.5 mmol/L (3.5-5.1); SGOT/AST 27.0 U/L (17-59); SGPT/ALT 26.0 U/L (0-50); Total Protein 6.7 g/dL (6.3-8.2)
[2025-07-22] MEDS: HUMALOG SQ SCH ×2 (08:26→12:36)
[2025-07-22] MEDS: ENOXAPARIN SODIUM SQ SCH (09:52)
[2025-07-22] MEDS: Tums EX 750 MG PO PRN (11:43)
--- NOTE | 2025-07-22 13:00 | PCM.DS ---
Discharge Summary Date of Admission: 07/21/25 06:07 Date of Discharge: 07/22/25 Admitting Physician: ALTHEA WARREN MD Consults: Consults on Case 07/21/25 08:50 Case Management SDAR DC Needs Assessment ROUTINE Primary Care Provider: NO FAMILY DOCTOR Allergies Allergies No Known Drug Allergies Allergy (Verified 07/21/25 02:58) Hospital Summary - Hospital Course Hospital Course: is a 25-year-old male with a history of type 1 diabetes, bipolar disorder, and ADHD who presented on 07/21/25 with persistent vomiting and concern for diabetic ketoacidosis (DKA) in the setting of insulin noncompliance and lack of long-acting insulin. He is homeless and living in his car, which has limited his ability to store medications and monitor glucose. On arrival, he was tachycardic with otherwise stable vitals, and labs confirmed severe highanion gap metabolic acidosis consistent with DKA. Urinalysis showed marked glucosuria and ketonuria, and CT abdomen/pelvis revealed no acute findings. He was treated with IV fluids, insulin infusion, and electrolyte repletion, with resolution of DKA and closure of the anion gap. During hospitalization, he reported epigastric pain relieved with a GI cocktail. His urine drug screen was positive for methamphetamines and THC, though he declined outpatient referral for substance use. Electrolytes and WBC count improved, and he was restarted on home insulin with prescriptions arranged through [facility] under his temporary insurance plan. Case management coordinated follow-up, and he has an appointment scheduled with his primary care provider tomorrow. At the time of discharge on 07/22/25, he was clinically stable, tolerating fluids, with improved labs, and deemed appropriate for discharge with outpatient follow-up and continuation of insulin therapy. - Vitals & Intake/Output Vital Signs: Vital Signs Temperature 97.4 F 07/22/25 04:00 Pulse Rate 96 H 07/22/25 10:47 Respiratory Rate 14 07/22/25 07:00 Blood Pressure 107/66 07/22/25 10:47 O2 Sat by Pulse Oximetry 99 07/22/25 04:00 Intake & Output: Intake & Output 07/20/25 07/21/25 07/22/25 07/23/25 11:59 11:59 11:59 11:59 Intake Total 6873 Output Total 1150 1100 Balance -1150 5773 Weight 70.6 kg - Lab Result Diagrams: 07/22/25 04:22 07/22/25 13:57 Lab Results-Last 24 Hrs: Lab Results-Last 24 Hours 07/21/25 07/21/25 07/21/25 Range/Units 12:40 12:40 13:21 WBC (4.23-9.07) x10^3/uL RBC (4.63-6.08) x10^6/uL Hgb (13.7-17.5) g/dL Hct (40.1-51.0) % MCV (79.0-92.2) fL MCH (25.7-32.2) pg MCHC (32.3-36.5) g/dL RDW (11.6-14.4) % Plt Count (163-337) x10^3/uL MPV (9.4-12.4) fL Gran % (34.0-67.9) % Immature Gran % (Auto) (0.001-0.429) % Nucleat RBC Rel Count (0.00-0.2) % Eos # (Auto) (0.04-0.54) x10^3/uL Immature Gran # (Auto) (0.001-0.031) x10^3u/L Absolute Lymphs (auto) (1.32-3.57) x10^3/uL Absolute Monos (auto) (0.30-0.82) x10^3/uL Absolute Nucleated RBC (0.00-0.012) x10^3u/L Lymphocytes % (21.8-53.1) % Monocytes % (5.3-12.2) % Eosinophils % (0.8-7.0) % Basophils % (0.2-1.2) % Absolute Granulocytes (1.78-5.38) x10^3/uL Basophils # (0.01-0.08) x10^3/uL pO2/FiO2 Ratio % VBG pH (7.32-7.42) VBG pCO2 at Pat Temp (42-55) mm/Hg VBG pO2 at Pat Temp (25-40) mm/Hg VBG HCO3 (22-28) meq/L VBG O2 Sat (Deondre) (95-100) VBG Base Excess (-2.0-2.0) VBG Hemoglobin VBG Carboxyhemoglobin (0.0-6.9) % T HGB POC Potassium (3.5-5.1) Sodium 135 (135-145) mmol/L Potassium 3.7 (3.5-5.1) mmol/L Chloride 106 (98-107) mmol/L Carbon Dioxide 16 L* (22-30) mmol/L Anion Gap 16.5 H (5-15) MEQ/L BUN 12 (9-20) mg/dL Creatinine 0.60 L (0.66-1.25) mg/dL Estimated GFR 137.4 ML/MIN Glucose 80 (74-106) mg/dL POC Glucometer 64 L (74 to 106) mg/dL Calcium 8.5 (8.4-10.2) mg/dL Phosphorus 2.6 (2.5-4.5) mg/dL Magnesium (1.6-2.3) mg/dL Total Bilirubin (0.2-1.3) mg/dL AST (17-59) U/L ALT (0-50) U/L Alkaline Phosphatase (38-126) U/L Serum Total Protein (6.3-8.2) g/dL Albumin (3.5-5.0) g/dL 07/21/25 07/21/25 07/21/25 Range/Units 14:06 15:05 16:00 WBC (4.23-9.07) x10^3/uL RBC (4.63-6.08) x10^6/uL Hgb (13.7-17.5) g/dL Hct (40.1-51.0) % MCV (79.0-92.2) fL MCH (25.7-32.2) pg MCHC (32.3-36.5) g/dL RDW (11.6-14.4) % Plt Count (163-337) x10^3/uL MPV (9.4-12.4) fL Gran % (34.0-67.9) % Immature Gran % (Auto) (0.001-0.429) % Nucleat RBC Rel Count (0.00-0.2) % Eos # (Auto) (0.04-0.54) x10^3/uL Immature Gran # (Auto) (0.001-0.031) x10^3u/L Absolute Lymphs (auto) (1.32-3.57) x10^3/uL Absolute Monos (auto) (0.30-0.82) x10^3/uL Absolute Nucleated RBC (0.00-0.012) x10^3u/L Lymphocytes % (21.8-53.1) % Monocytes % (5.3-12.2) % Eosinophils % (0.8-7.0) % Basophils % (0.2-1.2) % Absolute Granulocytes (1.78-5.38) x10^3/uL Basophils # (0.01-0.08) x10^3/uL pO2/FiO2 Ratio % VBG pH (7.32-7.42) VBG pCO2 at Pat Temp (42-55) mm/Hg VBG pO2 at Pat Temp (25-40) mm/Hg VBG HCO3 (22-28) meq/L VBG O2 Sat (Deondre) (95-100) VBG Base Excess (-2.0-2.0) VBG Hemoglobin VBG Carboxyhemoglobin (0.0-6.9) % T HGB POC Potassium (3.5-5.1) Sodium 136 (135-145) mmol/L Potassium 3.7 (3.5-5.1) mmol/L Chloride 106 (98-107) mmol/L Carbon Dioxide 17 L (22-30) mmol/L Anion Gap 15.8 H (5-15) MEQ/L BUN 11 (9-20) mg/dL Creatinine 0.63 L (0.66-1.25) mg/dL Estimated GFR 135.4 ML/MIN Glucose 81 (74-106) mg/dL POC Glucometer 111 H 86 (74 to 106) mg/dL Calcium 8.6 (8.4-10.2) mg/dL Phosphorus (2.5-4.5) mg/dL Magnesium (1.6-2.3) mg/dL Total Bilirubin (0.2-1.3) mg/dL AST (17-59) U/L ALT (0-50) U/L Alkaline Phosphatase (38-126) U/L Serum Total Protein (6.3-8.2) g/dL Albumin (3.5-5.0) g/dL 07/21/25 07/21/25 07/21/25 Range/Units 16:07 17:20 18:06 WBC (4.23-9.07) x10^3/uL RBC (4.63-6.08) x10^6/uL Hgb (13.7-17.5) g/dL Hct (40.1-51.0) % MCV (79.0-92.2) fL MCH (25.7-32.2) pg MCHC (32.3-36.5) g/dL RDW (11.6-14.4) % Plt Count (163-337) x10^3/uL MPV (9.4-12.4) fL Gran % (34.0-67.9) % Immature Gran % (Auto) (0.001-0.429) % Nucleat RBC Rel Count (0.00-0.2) % Eos # (Auto) (0.04-0.54) x10^3/uL Immature Gran # (Auto) (0.001-0.031) x10^3u/L Absolute Lymphs (auto) (1.32-3.57) x10^3/uL Absolute Monos (auto) (0.30-0.82) x10^3/uL Absolute Nucleated RBC (0.00-0.012) x10^3u/L Lymphocytes % (21.8-53.1) % Monocytes % (5.3-12.2) % Eosinophils % (0.8-7.0) % Basophils % (0.2-1.2) % Absolute Granulocytes (1.78-5.38) x10^3/uL Basophils # (0.01-0.08) x10^3/uL pO2/FiO2 Ratio % VBG pH (7.32-7.42) VBG pCO2 at Pat Temp (42-55) mm/Hg VBG pO2 at Pat Temp (25-40) mm/Hg VBG HCO3 (22-28) meq/L VBG O2 Sat (Deondre) (95-100) VBG Base Excess (-2.0-2.0) VBG Hemoglobin VBG Carboxyhemoglobin (0.0-6.9) % T HGB POC Potassium (3.5-5.1) Sodium (135-145) mmol/L Potassium (3.5-5.1) mmol/L Chloride (98-107) mmol/L Carbon Dioxide (22-30) mmol/L Anion Gap (5-15) MEQ/L BUN (9-20) mg/dL Creatinine (0.66-1.25) mg/dL Estimated GFR ML/MIN Glucose (74-106) mg/dL POC Glucometer 72 L 77 87 (74 to 106) mg/dL Calcium (8.4-10.2) mg/dL Phosphorus (2.5-4.5) mg/dL Magnesium (1.6-2.3) mg/dL Total Bilirubin (0.2-1.3) mg/dL AST (17-59) U/L ALT (0-50) U/L Alkaline Phosphatase (38-126) U/L Serum Total Protein (6.3-8.2) g/dL Albumin (3.5-5.0) g/dL 07/21/25 07/21/25 07/21/25 Range/Units 19:10 20:03 20:14 WBC (4.23-9.07) x10^3/uL RBC (4.63-6.08) x10^6/uL Hgb (13.7-17.5) g/dL Hct (40.1-51.0) % MCV (79.0-92.2) fL MCH (25.7-32.2) pg MCHC (32.3-36.5) g/dL RDW (11.6-14.4) % Plt Count (163-337) x10^3/uL MPV (9.4-12.4) fL Gran % (34.0-67.9) % Immature Gran % (Auto) (0.001-0.429) % Nucleat RBC Rel Count (0.00-0.2) % Eos # (Auto) (0.04-0.54) x10^3/uL Immature Gran # (Auto) (0.001-0.031) x10^3u/L Absolute Lymphs (auto) (1.32-3.57) x10^3/uL Absolute Monos (auto) (0.30-0.82) x10^3/uL Absolute Nucleated RBC (0.00-0.012) x10^3u/L Lymphocytes % (21.8-53.1) % Monocytes % (5.3-12.2) % Eosinophils % (0.8-7.0) % Basophils % (0.2-1.2) % Absolute Granulocytes (1.78-5.38) x10^3/uL Basophils # (0.01-0.08) x10^3/uL pO2/FiO2 Ratio % VBG pH (7.32-7.42) VBG pCO2 at Pat Temp (42-55) mm/Hg VBG pO2 at Pat Temp (25-40) mm/Hg VBG HCO3 (22-28) meq/L VBG O2 Sat (Deondre) (95-100) VBG Base Excess (-2.0-2.0) VBG Hemoglobin VBG Carboxyhemoglobin (0.0-6.9) % T HGB POC Potassium (3.5-5.1) Sodium 130 L (135-145) mmol/L Potassium 3.5 (3.5-5.1) mmol/L Chloride 104 (98-107) mmol/L Carbon Dioxide 18 L (22-30) mmol/L Anion Gap 12.6 (5-15) MEQ/L BUN 11 (9-20) mg/dL Creatinine 0.62 L (0.66-1.25) mg/dL Estimated GFR 136.0 ML/MIN Glucose 93 (74-106) mg/dL POC Glucometer 91 95 (74 to 106) mg/dL Calcium 8.4 (8.4-10.2) mg/dL Phosphorus (2.5-4.5) mg/dL Magnesium (1.6-2.3) mg/dL Total Bilirubin (0.2-1.3) mg/dL AST (17-59) U/L ALT (0-50) U/L Alkaline Phosphatase (38-126) U/L Serum Total Protein (6.3-8.2) g/dL Albumin (3.5-5.0) g/dL 07/21/25 07/21/25 07/21/25 Range/Units 21:04 22:01 22:58 WBC (4.23-9.07) x10^3/uL RBC (4.63-6.08) x10^6/uL Hgb (13.7-17.5) g/dL Hct (40.1-51.0) % MCV (79.0-92.2) fL MCH (25.7-32.2) pg MCHC (32.3-36.5) g/dL RDW (11.6-14.4) % Plt Count (163-337) x10^3/uL MPV (9.4-12.4) fL Gran % (34.0-67.9) % Immature Gran % (Auto) (0.001-0.429) % Nucleat RBC Rel Count (0.00-0.2) % Eos # (Auto) (0.04-0.54) x10^3/uL Immature Gran # (Auto) (0.001-0.031) x10^3u/L Absolute Lymphs (auto) (1.32-3.57) x10^3/uL Absolute Monos (auto) (0.30-0.82) x10^3/uL Absolute Nucleated RBC (0.00-0.012) x10^3u/L Lymphocytes % (21.8-53.1) % Monocytes % (5.3-12.2) % Eosinophils % (0.8-7.0) % Basophils % (0.2-1.2) % Absolute Granulocytes (1.78-5.38) x10^3/uL Basophils # (0.01-0.08) x10^3/uL pO2/FiO2 Ratio % VBG pH (7.32-7.42) VBG pCO2 at Pat Temp (42-55) mm/Hg VBG pO2 at Pat Temp (25-40) mm/Hg VBG HCO3 (22-28) meq/L VBG O2 Sat (Deondre) (95-100) VBG Base Excess (-2.0-2.0) VBG Hemoglobin VBG Carboxyhemoglobin (0.0-6.9) % T HGB POC Potassium (3.5-5.1) Sodium (135-145) mmol/L Potassium (3.5-5.1) mmol/L Chloride (98-107) mmol/L Carbon Dioxide (22-30) mmol/L Anion Gap (5-15) MEQ/L BUN (9-20) mg/dL Creatinine (0.66-1.25) mg/dL Estimated GFR ML/MIN Glucose (74-106) mg/dL POC Glucometer 88 118 H 131 H (74 to 106) mg/dL Calcium (8.4-10.2) mg/dL Phosphorus (2.5-4.5) mg/dL Magnesium (1.6-2.3) mg/dL Total Bilirubin (0.2-1.3) mg/dL AST (17-59) U/L ALT (0-50) U/L Alkaline Phosphatase (38-126) U/L Serum Total Protein (6.3-8.2) g/dL Albumin (3.5-5.0) g/dL 07/22/25 07/22/25 07/22/25 Range/Units 00:18 00:19 01:02 WBC (4.23-9.07) x10^3/uL RBC (4.63-6.08) x10^6/uL Hgb (13.7-17.5) g/dL Hct (40.1-51.0) % MCV (79.0-92.2) fL MCH (25.7-32.2) pg MCHC (32.3-36.5) g/dL RDW (11.6-14.4) % Plt Count (163-337) x10^3/uL MPV (9.4-12.4) fL Gran % (34.0-67.9) % Immature Gran % (Auto) (0.001-0.429) % Nucleat RBC Rel Count (0.00-0.2) % Eos # (Auto) (0.04-0.54) x10^3/uL Immature Gran # (Auto) (0.001-0.031) x10^3u/L Absolute Lymphs (auto) (1.32-3.57) x10^3/uL Absolute Monos (auto) (0.30-0.82) x10^3/uL Absolute Nucleated RBC (0.00-0.012) x10^3u/L Lymphocytes % (21.8-53.1) % Monocytes % (5.3-12.2) % Eosinophils % (0.8-7.0) % Basophils % (0.2-1.2) % Absolute Granulocytes (1.78-5.38) x10^3/uL Basophils # (0.01-0.08) x10^3/uL pO2/FiO2 Ratio % VBG pH (7.32-7.42) VBG pCO2 at Pat Temp (42-55) mm/Hg VBG pO2 at Pat Temp (25-40) mm/Hg VBG HCO3 (22-28) meq/L VBG O2 Sat (Deondre) (95-100) VBG Base Excess (-2.0-2.0) VBG Hemoglobin VBG Carboxyhemoglobin (0.0-6.9) % T HGB POC Potassium (3.5-5.1) Sodium 129 L (135-145) mmol/L Potassium 3.1 L (3.5-5.1) mmol/L Chloride 103 (98-107) mmol/L Carbon Dioxide 18 L (22-30) mmol/L Anion Gap 11.1 (5-15) MEQ/L BUN 9 (9-20) mg/dL Creatinine 0.56 L (0.66-1.25) mg/dL Estimated GFR 140.3 ML/MIN Glucose 140 H (74-106) mg/dL POC Glucometer 131 H 130 H (74 to 106) mg/dL Calcium 8.2 L (8.4-10.2) mg/dL Phosphorus (2.5-4.5) mg/dL Magnesium (1.6-2.3) mg/dL Total Bilirubin (0.2-1.3) mg/dL AST (17-59) U/L ALT (0-50) U/L Alkaline Phosphatase (38-126) U/L Serum Total Protein (6.3-8.2) g/dL Albumin (3.5-5.0) g/dL 07/22/25 07/22/25 07/22/25 Range/Units 01:10 02:01 02:58 WBC (4.23-9.07) x10^3/uL RBC (4.63-6.08) x10^6/uL Hgb (13.7-17.5) g/dL Hct (40.1-51.0) % MCV (79.0-92.2) fL MCH (25.7-32.2) pg MCHC (32.3-36.5) g/dL RDW (11.6-14.4) % Plt Count (163-337) x10^3/uL MPV (9.4-12.4) fL Gran % (34.0-67.9) % Immature Gran % (Auto) (0.001-0.429) % Nucleat RBC Rel Count (0.00-0.2) % Eos # (Auto) (0.04-0.54) x10^3/uL Immature Gran # (Auto) (0.001-0.031) x10^3u/L Absolute Lymphs (auto) (1.32-3.57) x10^3/uL Absolute Monos (auto) (0.30-0.82) x10^3/uL Absolute Nucleated RBC (0.00-0.012) x10^3u/L Lymphocytes % (21.8-53.1) % Monocytes % (5.3-12.2) % Eosinophils % (0.8-7.0) % Basophils % (0.2-1.2) % Absolute Granulocytes (1.78-5.38) x10^3/uL Basophils # (0.01-0.08) x10^3/uL pO2/FiO2 Ratio 21.0 % VBG pH 7.45 H (7.32-7.42) VBG pCO2 at Pat Temp 30 L (42-55) mm/Hg VBG pO2 at Pat Temp 122 H (25-40) mm/Hg VBG HCO3 20.9 L (22-28) meq/L VBG O2 Sat (Deondre) 98.6 (95-100) VBG Base Excess -2.1 L (-2.0-2.0) VBG Hemoglobin 13.4 VBG Carboxyhemoglobin 1.4 (0.0-6.9) % T HGB POC Potassium 3.0 L* (3.5-5.1) Sodium (135-145) mmol/L Potassium (3.5-5.1) mmol/L Chloride (98-107) mmol/L Carbon Dioxide (22-30) mmol/L Anion Gap (5-15) MEQ/L BUN (9-20) mg/dL Creatinine (0.66-1.25) mg/dL Estimated GFR ML/MIN Glucose (74-106) mg/dL POC Glucometer 116 H 102 (74 to 106) mg/dL Calcium (8.4-10.2) mg/dL Phosphorus (2.5-4.5) mg/dL Magnesium (1.6-2.3) mg/dL Total Bilirubin (0.2-1.3) mg/dL AST (17-59) U/L ALT (0-50) U/L Alkaline Phosphatase (38-126) U/L Serum Total Protein (6.3-8.2) g/dL Albumin (3.5-5.0) g/dL 07/22/25 07/22/25 07/22/25 Range/Units 04:21 04:22 04:22 WBC 8.5 (4.23-9.07) x10^3/uL RBC 4.91 (4.63-6.08) x10^6/uL Hgb 12.8 L D (13.7-17.5) g/dL Hct 39.0 L (40.1-51.0) % MCV 79.4 (79.0-92.2) fL MCH 26.1 (25.7-32.2) pg MCHC 32.8 (32.3-36.5) g/dL RDW 13.6 (11.6-14.4) % Plt Count 437 H (163-337) x10^3/uL MPV 9.4 (9.4-12.4) fL Gran % 56.6 (34.0-67.9) % Immature Gran % (Auto) 0.8 H (0.001-0.429) % Nucleat RBC Rel Count 0.0 (0.00-0.2) % Eos # (Auto) 0.26 (0.04-0.54) x10^3/uL Immature Gran # (Auto) 0.07 H (0.001-0.031) x10^3u/L Absolute Lymphs (auto) 2.64 (1.32-3.57) x10^3/uL Absolute Monos (auto) 0.65 (0.30-0.82) x10^3/uL Absolute Nucleated RBC 0.00 (0.00-0.012) x10^3u/L Lymphocytes % 31.2 (21.8-53.1) % Monocytes % 7.7 (5.3-12.2) % Eosinophils % 3.1 (0.8-7.0) % Basophils % 0.6 (0.2-1.2) % Absolute Granulocytes 4.80 (1.78-5.38) x10^3/uL Basophils # 0.05 (0.01-0.08) x10^3/uL pO2/FiO2 Ratio % VBG pH (7.32-7.42) VBG pCO2 at Pat Temp (42-55) mm/Hg VBG pO2 at Pat Temp (25-40) mm/Hg VBG HCO3 (22-28) meq/L VBG O2 Sat (Deondre) (95-100) VBG Base Excess (-2.0-2.0) VBG Hemoglobin VBG Carboxyhemoglobin (0.0-6.9) % T HGB POC Potassium (3.5-5.1) Sodium 133 L (135-145) mmol/L Potassium 3.5 (3.5-5.1) mmol/L Chloride 107 (98-107) mmol/L Carbon Dioxide 18 L (22-30) mmol/L Anion Gap 11.3 (5-15) MEQ/L BUN 7 L (9-20) mg/dL Creatinine 0.54 L (0.66-1.25) mg/dL Estimated GFR 141.8 ML/MIN Glucose 95 (74-106) mg/dL POC Glucometer 95 (74 to 106) mg/dL Calcium 8.5 (8.4-10.2) mg/dL Phosphorus (2.5-4.5) mg/dL Magnesium 1.9 (1.6-2.3) mg/dL Total Bilirubin 0.70 (0.2-1.3) mg/dL AST 27 (17-59) U/L ALT 26 (0-50) U/L Alkaline Phosphatase 110 (38-126) U/L Serum Total Protein 6.7 (6.3-8.2) g/dL Albumin 3.3 L (3.5-5.0) g/dL 07/22/25 07/22/25 07/22/25 Range/Units 04:22 05:07 06:09 WBC (4.23-9.07) x10^3/uL RBC (4.63-6.08) x10^6/uL Hgb (13.7-17.5) g/dL Hct (40.1-51.0) % MCV (79.0-92.2) fL MCH (25.7-32.2) pg MCHC (32.3-36.5) g/dL RDW (11.6-14.4) % Plt Count (163-337) x10^3/uL MPV (9.4-12.4) fL Gran % (34.0-67.9) % Immature Gran % (Auto) (0.001-0.429) % Nucleat RBC Rel Count (0.00-0.2) % Eos # (Auto) (0.04-0.54) x10^3/uL Immature Gran # (Auto) (0.001-0.031) x10^3u/L Absolute Lymphs (auto) (1.32-3.57) x10^3/uL Absolute Monos (auto) (0.30-0.82) x10^3/uL Absolute Nucleated RBC (0.00-0.012) x10^3u/L Lymphocytes % (21.8-53.1) % Monocytes % (5.3-12.2) % Eosinophils % (0.8-7.0) % Basophils % (0.2-1.2) % Absolute Granulocytes (1.78-5.38) x10^3/uL Basophils # (0.01-0.08) x10^3/uL pO2/FiO2 Ratio % VBG pH (7.32-7.42) VBG pCO2 at Pat Temp (42-55) mm/Hg VBG pO2 at Pat Temp (25-40) mm/Hg VBG HCO3 (22-28) meq/L VBG O2 Sat (Deondre) (95-100) VBG Base Excess (-2.0-2.0) VBG Hemoglobin VBG Carboxyhemoglobin (0.0-6.9) % T HGB POC Potassium (3.5-5.1) Sodium (135-145) mmol/L Potassium (3.5-5.1) mmol/L Chloride (98-107) mmol/L Carbon Dioxide (22-30) mmol/L Anion Gap (5-15) MEQ/L BUN (9-20) mg/dL Creatinine (0.66-1.25) mg/dL Estimated GFR ML/MIN Glucose (74-106) mg/dL POC Glucometer 96 123 H (74 to 106) mg/dL Calcium (8.4-10.2) mg/dL Phosphorus 2.7 (2.5-4.5) mg/dL Magnesium (1.6-2.3) mg/dL Total Bilirubin (0.2-1.3) mg/dL AST (17-59) U/L ALT (0-50) U/L Alkaline Phosphatase (38-126) U/L Serum Total Protein (6.3-8.2) g/dL Albumin (3.5-5.0) g/dL 07/22/25 07/22/25 07/22/25 Range/Units 08:15 09:45 11:56 WBC (4.23-9.07) x10^3/uL RBC (4.63-6.08) x10^6/uL Hgb (13.7-17.5) g/dL Hct (40.1-51.0) % MCV (79.0-92.2) fL MCH (25.7-32.2) pg MCHC (32.3-36.5) g/dL RDW (11.6-14.4) % Plt Count (163-337) x10^3/uL MPV (9.4-12.4) fL Gran % (34.0-67.9) % Immature Gran % (Auto) (0.001-0.429) % Nucleat RBC Rel Count (0.00-0.2) % Eos # (Auto) (0.04-0.54) x10^3/uL Immature Gran # (Auto) (0.001-0.031) x10^3u/L Absolute Lymphs (auto) (1.32-3.57) x10^3/uL Absolute Monos (auto) (0.30-0.82) x10^3/uL Absolute Nucleated RBC (0.00-0.012) x10^3u/L Lymphocytes % (21.8-53.1) % Monocytes % (5.3-12.2) % Eosinophils % (0.8-7.0) % Basophils % (0.2-1.2) % Absolute Granulocytes (1.78-5.38) x10^3/uL Basophils # (0.01-0.08) x10^3/uL pO2/FiO2 Ratio % VBG pH (7.32-7.42) VBG pCO2 at Pat Temp (42-55) mm/Hg VBG pO2 at Pat Temp (25-40) mm/Hg VBG HCO3 (22-28) meq/L VBG O2 Sat (Deondre) (95-100) VBG Base Excess (-2.0-2.0) VBG Hemoglobin VBG Carboxyhemoglobin (0.0-6.9) % T HGB POC Potassium (3.5-5.1) Sodium (135-145) mmol/L Potassium 4.2 (3.5-5.1) mmol/L Chloride (98-107) mmol/L Carbon Dioxide (22-30) mmol/L Anion Gap (5-15) MEQ/L BUN (9-20) mg/dL Creatinine (0.66-1.25) mg/dL Estimated GFR ML/MIN Glucose (74-106) mg/dL POC Glucometer 206 H 199 H (74 to 106) mg/dL Calcium (8.4-10.2) mg/dL Phosphorus (2.5-4.5) mg/dL Magnesium (1.6-2.3) mg/dL Total Bilirubin (0.2-1.3) mg/dL AST (17-59) U/L ALT (0-50) U/L Alkaline Phosphatase (38-126) U/L Serum Total Protein (6.3-8.2) g/dL Albumin (3.5-5.0) g/dL Micro Results-Entire Visit: Accuchecks Date 07/22/25 Date 07/22/25 Time 11:59 Time 10:03 - Radiology Exams Ordered Rad Exams-Entire Visit: Radiology Procedures Category Date Time Status ABDOMEN AND PELVIS W/0 CONTRAS [CT] Stat Exams 07/21/25 03:32 Completed - Procedures and Test Procedures and Tests throughout Hospitalization: Therapy Orders & Screens 07/21/25 08:50 Smoking Cessation Education ONCE Comment: Diagnosis: DKA Smoking Status: Current every day smoker How long have you smoked: 7 years Have you smoked in the past 12 months: Yes: vapes Approximately how many cigarettes per day: 1/2 ppd Do you dip or chew tobacco: No If,Former Smoker,when did you quit: 1 week ago Discharge Exam General Appearance: no apparent distress, alert Neurologic Exam: alert, oriented x 3, cooperative, normal mood/affect, nml cerebellar function, sensation nml, No motor deficits Eye Exam: PERRL, EOMI, eyes nml inspection Ears, Nose, Throat Exam: normal ENT inspection, pharynx normal, moist mucous membranes Neck Exam: normal inspection, non-tender, supple, full range of motion Respiratory Exam: normal breath sounds, lungs clear, No respiratory distress Cardiovascular Exam: regular rate/rhythm, normal heart sounds Gastrointestinal/Abdomen Exam: soft, No tenderness, No mass Male Genitalia Exam: deferred Rectal Exam: deferred Back Exam: normal inspection, normal range of motion, No CVA tenderness, No vertebral tenderness Extremity Exam: normal inspection, normal range of motion Skin Exam: normal color, warm, dry Final Diagnosis/Problem List - Final Discharge Diagnosis/Problem (1) DKA, type 1, not at goal Current Visit: Yes Status: Resolved Assessment & Plan: - Resolved - Gap closed - A1C- pending - Will send in refills of home insulin Code(s): E10.10 - TYPE 1 DIABETES MELLITUS WITH KETOACIDOSIS WITHOUT COMA (2) Lactic acidosis Current Visit: Yes Status: Acute Assessment & Plan: - Resolved Code(s): E87.20 - ACIDOSIS, UNSPECIFIED (3) Metabolic acidosis Current Visit: Yes Status: Acute Assessment & Plan: - CO2 18 - improved - IVF - Recheck this afternoon- Improved to 20 - F/U with PCP for repeat labs Code(s): E87.20 - ACIDOSIS, UNSPECIFIED (4) Epigastric pain Current Visit: Yes Status: Acute Assessment & Plan: - Start pepcid daily as tums did not help - GI cocktail now - RX for pepcid sent in. Code(s): R10.13 - EPIGASTRIC PAIN (5) Bipolar 1 disorder Current Visit: Yes Status: Chronic Assessment & Plan: -Not on home meds currently - Will need to f[facility]u [facility] Code(s): F31.9 - BIPOLAR DISORDER, UNSPECIFIED (6) Homeless Current Visit: Yes Status: Chronic Assessment & Plan: - Lives in Car with s/o - Warming center info provided by [facility] Code(s): Z59.00 - HOMELESSNESS UNSPECIFIED (7) Substance abuse Current Visit: Yes Status: Acute Assessment & Plan: - UDS + for Meth and THC - Refuses OP treatment or referral Code(s): F19.10 - OTHER PSYCHOACTIVE SUBSTANCE ABUSE, UNCOMPLICATED (8) Vomiting Current Visit: Yes Status: Resolved Assessment & Plan: - resolved - 2:2 DKA - Zofran PRN Code(s): R11.10 - VOMITING, UNSPECIFIED (9) Leukocytosis Current Visit: Yes Status: Resolved Assessment & Plan: - resolved D/C plan of care time > 50 minutes Code(s): D72.829 - ELEVATED WHITE BLOOD CELL COUNT, UNSPECIFIED - Discharge Discharge Date: 07/22/25 Disposition: Home, Self-Care Condition: Stable Prescriptions: New Blood-Glucose Meter [Accu-Chek Guide Me Glucose Mtr] 1 each UD #1 misc Blood Sugar Diagnostic [Accu-Chek Guide Test Strip] 1 each ACHS 30 Days #120 strip Lancets [Accu-Chek Softclix] 1 each ACHS #120 misc Famotidine 20 mg [Pepcid 20 MG] 20 mg PO DAILY 30 Days #30 tablet Insulin Lispro [Humalog Kwikpen U-100] 10 unit SQ ACHS 30 Days #5 units Pen Needle, Diabetic [Insulin Pen Needle] 1 each 5XD #150 misc Continue Insulin Glargine,Hum.rec.anlog [Basaglar Kwikpen U-100] 30 unit SQ DAILY 30 Days #5 units Discontinued Insulin Lispro [Insulin Lispro Kwikpen U-100] See Rx Instructions .ROUTE .COMPLEX Instructions: Diabetic ketoacidosis - Discharge instructions Follow up with: ASHKAN EL [ACTIVE STAFF, FAMILY PRACTICE] - 07/23/25 10:40 am
[2025-07-22] MEDS: GI COCKTAIL 45 ML (Maalox/Lidocaine) PO ONE (13:01)
[2025-07-22] MEDS: Pepcid 20 MG PO SCH (14:06)
[2025-07-22 14:17] LABS: Calcium 8.7 mg/dL (8.4-10.2); Carbon Dioxide 20.0 mmol/L (22-30); Creatinine 1 0.59 mg/dL (0.66-1.25); EST GLOMERULAR FILTRATION RATE 138.1 ML/MIN; Glucose 214.0 mg/dL (74-106); Potassium 3.9 mmol/L (3.5-5.1)
[2025-07-22 14:34] VITALS: RESP 18
[2025-07-22 15:12] VITALS: BP 131/87; PULSE 97
[2025-07-22] MEDS ORDERED: HUMALOG SQ SCH (17:00)
== END 2025-07-22 15:28 | disposition home or self-care (01) ==
LOC: ED 02:53 → ICU 06:07
PROVIDERS: ADMIT Student in an Organized Health Care Education/Training Program; ATTEND Student in an Organized Health Care Education/Training Program
DX: E10.10 Type 1 diabetes mellitus with ketoacidosis without coma (principal); Z59.00 Homelessness unspecified; R10.13 Epigastric pain; F31.9 Bipolar disorder, unspecified; F19.10 Other psychoactive substance abuse, uncomplicated; R11.10 Vomiting, unspecified; D72.829 Elevated white blood cell count, unspecified; F17.200 Nicotine dependence, unspecified, uncomplicated; Z79.899 Other long term (current) drug therapy